=== PATIENT | male | born 1970 | race Caucasian/White ===

== ENCOUNTER 2022-06-03 07:36 | Emergency (ER) | payer OTHER, SELFPAY ==
--- NOTE | ~2022-06-03 | CT_ITS ---
EXAMINATION: CT CERVICAL, THORACIC, LUMBAR SPINE WITHOUT CONTRAST CLINICAL INFORMATION: Back and neck pain status post trauma/fall. COMPARISON: None TECHNIQUE: Multiple axial images of the cervical, thoracic and lumbar spine without administration of intravenous contrast. Coronal and sagittal reformatted images were obtained. FINDINGS: Cervical: There is straightening of the normal cervical lordosis with normal spinal alignment. Moderate to severe degenerative disc disease is seen at C6-7 with disc space narrowing, sclerosis and adjacent endplates and marginal osteophyte formation. Minimal bilateral neural foraminal narrowing as well. Mild disc space narrowing is seen at C5-6. The vertebral bodies and odontoid processes are intact. Mild multilevel bilateral facet arthropathy is seen. The spinous and transverse processes are intact. The cervical soft tissues are unremarkable. There is no lymphadenopathy. The thyroid gland is unremarkable. Thoracic: There is normal thoracic kyphosis and spinal alignment. Minimal multilevel degenerative changes are seen with marginal osteophyte formation. The vertebral bodies are intact. Minimal multilevel disc space narrowing is seen. The neural foramina are patent. Mild multilevel bilateral facet arthropathy is seen. A curvilinear lucency is seen along the posterior inferior margin of the spinous process of T6 (image 51, series 32). The remainder the spinous processes are intact. The paravertebral and subcutaneous soft tissues posteriorly are unremarkable. The visualized mediastinum and lungs are unremarkable. Lumbar: Transitional anatomy with rudimentary ribs at L1. Rudimentary disc at S1-2. There is normal lumbar lordosis and spinal alignment. The vertebral bodies are intact. The intervertebral disc spaces are unremarkable. The neural foramina are patent. Mild facet arthropathy is seen at L4-5. The spinous processes are intact. Mild bilateral sacroiliac degenerative joint changes. The visualized pelvis and sacrum are intact. The paravertebral and subcutaneous soft tissues posteriorly are unremarkable. No significant abnormality in the visualized posterior abdomen and pelvis. CT/CT thoracic spine wo IV con IMPRESSION: 1. Curvilinear lucency along the posterior inferior margin of the spinous process at the T6 level appears corticated and not acute. Acute nondisplaced fracture would be less likely. Correlate with physical exam. No other significant acute appearing abnormality. 2. Multilevel degenerative changes as detailed above.
--- NOTE | ~2022-06-03 | XR_ITS ---
EXAMINATION: XR PELVIS WITH HIP, LEFT XR KNEE, LEFT CLINICAL INFORMATION: Fall. Left leg pain. COMPARISON: None TECHNIQUE: Frontal view of the pelvis with 2 views of the left hip. 4 views of the left knee. FINDINGS: Pelvis/left hip: No fracture or dislocation. The hips are well aligned. Joint spaces are maintained. Tiny marginal osteophytes. Mild irregularity/degenerative change at the pubic symphysis with sclerosis. The sacroiliac joints are symmetric. Surgical clips likely associated with vasectomy. Left knee: No fracture or subluxation. Compartmental joint spaces are maintained. Small tricompartmental marginal osteophytes. No joint effusion. The soft tissues are unremarkable. XR/XR hip LT w PEL1V IMPRESSION: No fracture or malalignment involving the pelvis, left hip, or left knee. Mild degenerative changes.
--- NOTE | ~2022-06-03 | XR_ITS ---
EXAMINATION: XR PELVIS WITH HIP, LEFT XR KNEE, LEFT CLINICAL INFORMATION: Fall. Left leg pain. COMPARISON: None TECHNIQUE: Frontal view of the pelvis with 2 views of the left hip. 4 views of the left knee. FINDINGS: Pelvis/left hip: No fracture or dislocation. The hips are well aligned. Joint spaces are maintained. Tiny marginal osteophytes. Mild irregularity/degenerative change at the pubic symphysis with sclerosis. The sacroiliac joints are symmetric. Surgical clips likely associated with vasectomy. Left knee: No fracture or subluxation. Compartmental joint spaces are maintained. Small tricompartmental marginal osteophytes. No joint effusion. The soft tissues are unremarkable. XR/XR knee LT 4V IMPRESSION: No fracture or malalignment involving the pelvis, left hip, or left knee. Mild degenerative changes.
--- NOTE | ~2022-06-03 | CT_ITS ---
EXAMINATION: CT HEAD WITHOUT CONTRAST CLINICAL INFORMATION: Head pain status post trauma/fall. COMPARISON: None TECHNIQUE: Contiguous axial imaging was performed from the skull base to vertex without intravenous administration of contrast. Coronal and sagittal reformatted images were obtained. This CT examination was performed using dose optimization techniques as appropriate, variously including the following: *Automated exposure control *Adjustment of mA and/or kV according to patient size (this includes techniques or standardized protocols for targeted exams where dose is matched to indication/reason for exam; i.e. extremities or head) *Use of iterative reconstruction technique DLP: 826.30 mGy-cm FINDINGS: The cortical sulci are normal. The lateral ventricles are symmetrical. The third and fourth ventricles are in their normal midline position. The basilar and prepontine cisterns are unremarkable. There is no acute intra or extracerebral abnormality. There is no mass effect or midline shift. Sections through the bony calvarium are unremarkable. The paranasal sinuses are clear. The bony orbits and orbital contents are unremarkable. Mild anterior nasal septal deviation, apex of the right. Mild asymmetric mucosal thickening is seen in the right nasal cavity. CT/CT head/brain wo IV con IMPRESSION: No acute intracranial pathology.
[2022-06-03 07:49] VITALS: BP 121/65; PULSE 103; RESP 18; TEMP 36.1; O2SAT 96; BMI 38.2
--- NOTE | 2022-06-03 08:03 | ED.GENADULT ---
HPI - General Adult General Chief complaint: Fall Stated complaint: 5FT FALL FROM TRUCK,HEAD STRIKE,LLE PAIN Time Seen by Provider: 06/03/22 08:01 Source: patient and EMS Mode of arrival: EMS Limitations: no limitations History of Present Illness HPI narrative: Patient is a 51 year old assigned male at with no reported medical history presenting to the emergency department today after a fall. Patient states that he was moving oxygen tanks from truck to truck when someone moved the truck that he was stepping off of and he fell backwards approximately 5 feet, striking his head. Patient denies any loss of consciousness. Patient states that his left hip/leg, back, and head are all that hurt at this time. Patient denies any dizziness, lightheadedness, abdominal pain, nausea, vomiting, fever, chills, blurry vision, double vision, loss of vision, chest pain, difficulty breathing, shortness of breath, back pain, night sweats, pain with urination, increased urinary frequency, increased urinary urgency, blood in his urine or stool, syncope or a near syncopal episode, bowel incontinence, bladder incontinence, bowel retention, bladder retention, or any other complaints at this time. Onset (ago): hour(s) Location: head, back, left and lower extremity Radiation: non-radiation Severity: mild Severity scale (1-10): 3 Relieving factors: none Exacerbating factors: none Associated symptoms: denies other symptoms Treatments prior to arrival: none Related Data Previous Rx's Medication Instructions Recorded cyclobenzaprine 10 mg tablet 10 mg PO TID PRN muscle spasm 7 06/03/22 days #21 tabs Allergies Allergy/AdvReac Type Severity Reaction Status Date / Time No Known Allergies Allergy Verified 06/03/22 07:48 Review of Systems Constitutional: Constitutional: Reports no additional constitutional complaints, Denies chills, Denies fever(s) and Denies night sweats Eyes: Eyes: Reports no additional eye complaints, Denies blurry vision, Denies change in vision, Denies diplopia, Denies eye discharge, Denies loss of vision and Denies eye pain ENT: Denies dizziness Cardiovascular: Cardiovascular: Reports no additional cardiovascular complaints, Denies chest pain, Denies lightheadedness, Denies Loss of Consciousness and Denies dyspnea Respiratory: Respiratory: Reports no additional respiratory complaints and Denies dyspnea Gastrointestinal: Gastrointestinal: Reports no additional gastrointestinal complaints, Denies abdominal pain, Denies melena, Denies hematochezia, Denies change in bowel habits and Denies change in stool character Genitourinary: Genitourinary: Reports no additional male genitourinary complaints, Denies hematuria, Denies oliguria, Denies difficulty urinating, Denies dysuria, Denies urinary frequency, Denies urinary hesitancy, Denies urinary incontinence and Denies urinary urgency Musculoskeletal: Musculoskeletal: Reports no additional musculoskeletal complaints, Denies numbness and Denies tingling Comments: left leg pain, low back pain, headache Neurologic: Denies dizziness, Denies loss of vision, Denies numbness and Denies tingling Psychiatric: Psychiatric: Reports no additional psychiatric complaints Endocrine: Endocrine: Reports no additional endocrine complaints Hematologic/Lymphatic: Hematologic/Lymphatic: Reports no additional hematologic/lymphatic complaints Allergic/Immunologic: Allergic/Immunologic: Reports no additional allergic/immunologic complaints PMFSH Past Medical History Attestation statement: The following information was validated with the patient. Source: old records reviewed and nursing notes reviewed Social History Social History Advance Directives: No Advance Directives Information Provided: No Physical Exam ED Vital Signs: Vital Signs - 24 hr 06/03/22 07:49 06/03/22 09:44 Temperature 97.0 F Pulse Rate 103 H 104 H Respiratory Rate 18 18 Blood Pressure 121/65 130/75 Pulse Oximetry 96 96 Oxygen Delivery Method Room Air Room Air BMI result Body Mass Index 38.2 Const General: cooperative, no acute distress, alert and awake Nutritional Appearance: well nourished Orientation/consciousness: patient oriented x3 Limitations: no limitations HENMT Other: small abrasion to the posterior scalp - no active bleeding Ears: hearing grossly normal bilaterally and external ears normal General nose exam: Normal external nose present, no nasal discharge noted and no epistaxis Face and sinus: Yes abrasion (abrasion to the left eyebrow, no active bleeding) Mouth: Normal oral and palatal mucosa present, no drooling and no muffled voice Eyes General: appearance normal, both eyes and all related structures Periorbital: periorbital findings normal Eyelids: Yes eyelids normal Conjunctivae: conjunctivae normal Pupils: Equal, round and reactive pupils present EOM: EOMs intact bilaterally Neck Neck: Yes normal visual inspection, Yes full ROM and Yes no lymphadenopathy Chest Chest palpation & inspection: normal inspection of the chest Resp Effort & Inspection: normal respiratory effort and able to speak in complete sentences Auscultation: clear to auscultation bilaterally Cardio Rate: regular rate Rhythm: regular rhythm GI Inspection: Yes normal to inspection Palpation (GI): Soft to palpation, not firm, nontender, no guarding and not rigid General: Yes no CVA tenderness Back/Spine/Pelvis Back: no CVA tenderness Cervical Spine: normal cervical lordosis and cervical ROM normal Thoracic/Lumbar Spine: thoracic and lumbar spine normal to inspection and thoraco-lumbar ROM normal Pelvis: no pain with anterior-posterior compression Neuro General: patient oriented x3 and moves all extremities Cranial nerves: Yes Equal, round and reactive pupils present Cognition (Neuro): normal cognition Motor exam (neuro): 5/5 motor strength present throughout Sensory Exam: Normal double simultaneous stimulation for sensation Coordination: [id number] test normal Extrem General: Yes normal to inspection, Yes full ROM and Yes capillary refill normal Psych Appearance: grossly normal Mental Status: mental status grossly normal Affect: normal affect Attitude: cooperative Thought process: Normal thought process present Thought content: Normal thought content present Insight: Good insight present (Psych) Medications Administered Discontinued Medications Generic Name Dose Route Start Last Admin Trade Name Freq PRN Reason Stop Dose Admin Acetaminophen 650 mg 06/03/22 08:19 06/03/22 08:45 Acetaminophen 325 Mg Tablet PO 06/03/22 08:20 650 mg ONCE ONE Administration Diphtheria/Tetanus/Acell Pertussis 0.5 ml 06/03/22 08:15 06/03/22 08:55 Diphth,Pertus(Acell),Tet Adult 0.5 Ml Syringe IM 06/03/22 08:16 0.5 ml .ONCE ONE Administration Medical Decision Making Medical Decision Making [facility] Narrative: Patient is a 51 year old assigned male at with no reported medical history presenting to the emergency department today with left leg, head, and back pain after a fall. Patient's physical exam showed a small posterior scalp abrasion with no active bleeding and a small left lateral eyebrow laceration with no active bleeding. Patient's left hip, pelvis, and knee x-rays showed no acute process. Patient's head, neck, lumbar, and thoracic CTs showed no acute process. I explained my physical exam findings as well as all test results to the patient. I answered all questions asked by the patient. Patient was brought up to date on his tetanus status. I stressed the importance of the patient taking his medication as prescribed. I stressed the importance of the patient following up with his primary care provider and an orthopedic provider if needed. I stressed the importance of the patient returning to the emergency department immediately if his symptoms were to worsen or if he were to develop any dizziness, shortness of breath, difficulty breathing, chest pain, blurry vision, loss of vision, nausea, vomiting, abdominal pain, fever, chills, back pain, or any other complaints. Patient verbalized agreement and understanding with this treatment plan and discharge. Differential Diagnosis Differential Diagnoses: The differential diagnosis associated with the presentation includes fall, abrasion, contusion Independent Interpretation I performed an independent interpretation of an: Plain X-Ray and CT Scan Interpretation: My interpretation is in agreement with the radiologist's impression of these imaging studies. EXAMINATION: XR PELVIS WITH HIP, LEFT XR KNEE, LEFT CLINICAL INFORMATION: Fall. Left leg pain.? COMPARISON: None? TECHNIQUE: Frontal view of the pelvis with 2 views of the left hip. 4 views of the left knee.? FINDINGS: Pelvis/left hip: No fracture or dislocation. The hips are well aligned. Joint spaces are maintained. Tiny marginal osteophytes. Mild irregularity/degenerative change at the pubic symphysis with sclerosis. The sacroiliac joints are symmetric. Surgical clips likely associated with vasectomy. Left knee: No fracture or subluxation. Compartmental joint spaces are maintained. Small tricompartmental marginal osteophytes. No joint effusion. The soft tissues are unremarkable. XR/XR knee LT 4V IMPRESSION: No fracture or malalignment involving the pelvis, left hip, or left knee. Mild degenerative changes. Dictated By: Terry Cheng MD Signed By: Electronically signed by Terry Cheng MD 06/03/22 0933 EXAMINATION: CT CERVICAL, THORACIC, LUMBAR SPINE WITHOUT CONTRAST CLINICAL INFORMATION: Back and neck pain status post trauma/fall. COMPARISON: None? TECHNIQUE: Multiple axial images of the cervical, thoracic and lumbar spine without administration of intravenous contrast. Coronal and sagittal reformatted images were obtained. FINDINGS: Cervical: There is straightening of the normal cervical lordosis with normal spinal alignment. Moderate to severe degenerative disc disease is seen at C6-7 with disc space narrowing, sclerosis and adjacent endplates and marginal osteophyte formation. Minimal bilateral neural foraminal narrowing as well. Mild disc space narrowing is seen at C5-6. The vertebral bodies and odontoid processes are intact. Mild multilevel bilateral facet arthropathy is seen. The spinous and transverse processes are intact. The cervical soft tissues are unremarkable. There is no lymphadenopathy. The thyroid gland is unremarkable. Thoracic: There is normal thoracic kyphosis and spinal alignment. Minimal multilevel degenerative changes are seen with marginal osteophyte formation. The vertebral bodies are intact. Minimal multilevel disc space narrowing is seen. The neural foramina are patent. Mild multilevel bilateral facet arthropathy is seen. A curvilinear lucency is seen along the posterior inferior margin of the spinous process of T6 (image 51, series 32). The remainder the spinous processes are intact. The paravertebral and subcutaneous soft tissues posteriorly are unremarkable. The visualized mediastinum and lungs are unremarkable. Lumbar: Transitional anatomy with rudimentary ribs at L1. Rudimentary disc at S1-2. There is normal lumbar lordosis and spinal alignment. The vertebral bodies are intact. The intervertebral disc spaces are unremarkable. The neural foramina are patent. Mild facet arthropathy is seen at L4-5. The spinous processes are intact. Mild bilateral sacroiliac degenerative joint changes. The visualized pelvis and sacrum are intact. The paravertebral and subcutaneous soft tissues posteriorly are unremarkable. No significant abnormality in the visualized posterior abdomen and pelvis. CT/CT thoracic spine wo IV con IMPRESSION: 1. Curvilinear lucency along the posterior inferior margin of the spinous process at the T6 level appears corticated and not acute. Acute nondisplaced fracture would be less likely. Correlate with physical exam. No other significant acute appearing abnormality. 2. Multilevel degenerative changes as detailed above. Dictated By: Grzegorz Kwon MD Signed By: Electronically signed by Grzegorz Kwon MD 06/03/22 0928 EXAMINATION: CT HEAD WITHOUT CONTRAST CLINICAL INFORMATION: Head pain status post trauma/fall.? COMPARISON: None TECHNIQUE: Contiguous axial imaging was performed from the skull base to vertex without intravenous administration of contrast. Coronal and sagittal reformatted images were obtained. This CT examination was performed using dose optimization techniques as appropriate, variously including the following: *Automated exposure control *Adjustment of mA and/or kV according to patient size (this includes techniques or standardized protocols for targeted exams where dose is matched to indication/reason for exam; i.e. extremities or head) *Use of iterative reconstruction technique DLP: 826.30 mGy-cm FINDINGS: The cortical sulci are normal. The lateral ventricles are symmetrical. The third and fourth ventricles are in their normal midline position. The basilar and prepontine cisterns are unremarkable. There is no acute intra or extracerebral abnormality. There is no mass effect or midline shift. Sections through the bony calvarium are unremarkable. The paranasal sinuses are clear. The bony orbits and orbital contents are unremarkable. Mild anterior nasal septal deviation, apex of the right. Mild asymmetric mucosal thickening is seen in the right nasal cavity. CT/CT head/brain wo IV con IMPRESSION: No acute intracranial pathology. Dictated By: Grzegorz Kwon MD Signed By: Electronically signed by Grzegorz Kwon MD 06/03/22 0913 Critical Care Time Critical Care Time Critical Care Time: Yes Total Critical Care Time: 30 Attestation: I spent 30 minutes of Critical Care Time with this patient. This does not include time spent on separately reported billable procedures. Discharge Plan Discharge Clinical Impression: Fall Patient Disposition: Home, Self-Care Instructions: Fall Prevention (ED) Additional Instructions: Follow up with your primary care provider. Return to the emergency department immediately if your symptoms worsen or if you develop any dizziness, shortness of breath, difficulty breathing, chest pain, blurry vision, loss of vision, nausea, vomiting, abdominal pain, fever, chills, back pain, or any other complaints. Prescriptions: New cyclobenzaprine 10 mg tablet 10 mg PO TID PRN (Reason: muscle spasm) 7 Days Qty: 21 0RF Referrals: [facility] [Provider Group] (Call to establish and follow up with an orthopedic provider if your left upper leg pain continues.) [facility] [Provider Group] (Given that this was a work injury, you should follow up with [facility].) Earnest Duarte MD [Primary Care Provider] - Stand Alone Forms: Work/School Release Interventions: ED Discharge Assessment Last Done: 06/03/22 09:45 Discharge Date/Time: 06/03/22 09:51 Print Language: Citizen Of [place]
[2022-06-03] MEDS: Acetaminophen 325 MG TABLET 650 MG PO (08:45)
[2022-06-03] MEDS: Diphth,Pertus(ACell),Tet Adult 0.5 ML SYRINGE IM (08:55)
[2022-06-03 09:44] VITALS: BP 130/75; PULSE 104; RESP 18; O2SAT 96
== END 2022-06-03 09:51 | disposition home or self-care (01) ==
PROVIDERS: Emergency Provider Emergency Medicine; PCP Internal Medicine
DX: S09.90XA Unspecified injury of head, initial encounter (principal); S20.412A Abrasion of left back wall of thorax, initial encounter; R51.9 Headache, unspecified; M54.2 Cervicalgia; M54.6 Pain in thoracic spine; R10.2 Pelvic and perineal pain; M25.562 Pain in left knee; V83.6XXA Passenger of special industrial vehicle injured in nontraffic accident, initial encounter; Y93.9 Activity, unspecified; Y92.9 Unspecified place or not applicable; Y99.9 Unspecified external cause status; Z79.899 Other long term (current) drug therapy; Z23 Encounter for immunization
CPT/HCPCS: 70450; 72125; 72128; 72131; 73502; 73564; 90471; 90715; 99283; 99284

== ENCOUNTER → 2022-07-07 09:55 | Outpatient (BNVA) | payer OTHER, SELFPAY | PROVIDERS: PCP Internal Medicine; Visit Provider Physician Assistant Medical | DX: M25.552 Pain in left hip (principal); M25.562 Pain in left knee; Z91.81 History of falling | CPT/HCPCS: 99203 ==

== ENCOUNTER 2022-12-25 10:40 | Observation (INO) | payer OTHER, SELFPAY ==
--- NOTE | ~2022-12-25 | CT_ITS ---
EXAMINATION: CT ABDOMEN AND PELVIS WITH CONTRAST CLINICAL INFORMATION: Lower abdominal pain. COMPARISON: None available. TECHNIQUE: Multidetector volumetric images were obtained from the superior aspect of the liver through the pubic symphysis following administration 85 mL of Omnipaque 350 intravenous contrast. Sagittal and coronal reformatted images were obtained on the technologist's workstation. Oral contrast: No This CT examination was performed using dose optimization techniques as appropriate, variously including the following: *Automated exposure control *Adjustment of mA and/or kV according to patient size (this includes techniques or standardized protocols for targeted exams where dose is matched to indication/reason for exam; i.e. extremities or head) *Use of iterative reconstruction technique DLP: 918 mGy-cm FINDINGS: LUNG BASES: The visualized lung bases are unremarkable. LIVER, GALLBLADDER, AND BILIARY TREE: The liver is decreased in attenuation. No focal hepatic lesion or biliary ductal dilatation is present. The gallbladder is unremarkable with no evidence of radiopaque gallstones, gallbladder wall thickening, or obvious pericholecystic inflammatory changes. PANCREAS: No ductal dilatation. SPLEEN: Not enlarged. ADRENAL GLANDS: No adrenal mass. KIDNEYS AND URETERS: The kidneys are symmetric in size. No hydronephrosis or perinephric stranding. BLADDER: Unremarkable. GASTROINTESTINAL TRACT: Dilated and thick-walled appendix with surrounding inflammatory changes. There are reactive changes of the terminal ileum and cecal apex. No small bowel obstruction. Moderate fecal retention in the colon. ABDOMINAL WALL: Bilateral fat-containing inguinal hernias. LYMPH NODES: Few subcentimeter right lower quadrant mesenteric lymph nodes. VASCULAR: Normal caliber abdominal aorta. PELVIC VISCERA: The prostate glands and seminal vesicles are unremarkable. OSSEOUS STRUCTURES: No destructive bone lesions. CT/CT abdomen pelvis w IV con IMPRESSION: Acute appendicitis. Surgical consultation is recommended. Hepatic steatosis. Findings were reviewed and discussed with Dr. Romano at 2:30 PM on 12/25/2022.
[2022-12-25 10:44] VITALS: BP 132/68; PULSE 94; RESP 18; TEMP 36.9; O2SAT 97; BMI 36.9
[2022-12-25 11:04] LABS: MANUAL DIFF FLAG NO
[2022-12-25 11:06] LABS: Basophils Percent Auto 0.2 % (0-2); Eosinophils Absolute Auto 0.1 X10*3/uL (0.0-0.4); Eosinophils Percent Auto 0.5 % (0-4); Hematocrit 44.7 % (42.0-52.0); Hemoglobin 15.5 g/dl (14.0-18.0); Imm Gran Abs Auto 0.02 X10*3/uL (0.00-0.03); Imm Gran Pct Auto 0.2 % (0.0-0.4); Lymphocytes Absolute Auto 1.9 X10*3/uL (1.2-4.9); Lymphocytes Percent Auto 18.8 % (20-40); Mean Corpuscular HGB Conc 34.7 g/dl (31.0-36.0); Mean Corpuscular Hemoglobin 29.6 pg (27.0-33.0); Mean Corpuscular Volume 85.3 fL (80.0-98.0); Mean Platelet Volume 10.4 fL (9.4-12.4); Monocytes Absolute Auto 0.7 X10*3/uL (0.1-1.2); Monocytes Percent Auto 6.9 % (2-11); Neutrophils Absolute Auto 7.3 x10*3/uL (2.0-8.3); Neutrophils Percent Auto 73.4 % (45-73); Platelet Count 211 X10*3/uL (160-400); Red Blood Count 5.24 X10*6/uL (4.60-5.80); Red Cell Distribution Width 12.4 % (11.0-16.0)
[2022-12-25 11:23] LABS: Alanine Aminotransferase 34 U/L (0-40); Albumin Level 4.4 g/dL (3.5-5.0); Alkaline Phosphatase 59 U/L (39-117); Anion Gap 14 (12-20); Aspartate Amino Transferase 22 U/L (5-37); Bilirubin Direct 0.2 mg/dL (0.0-0.5); Bilirubin Total 0.6 mg/dL (0.0-1.0); Blood Urea Nitrogen 19 mg/dL (9-16); Calcium 9.4 mg/dL (8.4-10.2); Carbon Dioxide 22 mmol/L (22-29); Chloride 104 mmol/L (96-108); Creatinine Clr Calc Pharmacy 107.4; Estimated Glomerular Filt Rate > 60; Glucose Random 196 mg/dL (60-115); Lipase 15 U/L (8-78); Potassium 3.8 mmol/L (3.3-5.1); Sodium 136 mmol/L (135-145); Total Protein 7.7 g/dL (6.5-8.0)
[2022-12-25 11:39] LABS: COVID-19 Test Negative (Negative); IDNOW Serial# 08D9AD1C
[2022-12-25 11:47] LABS: IDNOW Serial# BCCEAD1C; Influenza A Negative (Negative); Influenza B2 Negative (Negative)
[2022-12-25 12:04] VITALS: BP 110/66; PULSE 84; RESP 17; TEMP 36.6; O2SAT 94
--- NOTE | 2022-12-25 12:14 | ED.ABDPAIN ---
HPI - Abdominal Pain General Chief Complaint: Abdominal Pain Stated Complaint: abd pain Time Seen by Provider: 12/25/22 12:02 Source: patient Mode of arrival: ambulatory Limitations: no limitations History of Present Illness HPI narrative: 52 yo male with PMH of HTN, DM no prior abdominal surgeries started with lower abdominal pain yesterday and nausea and poor PO intake. NO diarrhea and no vomiting, no change in urine but decreased output. Has had increased pain today. No prior bouts of diverticulitis, no prior abdominal surgeries. MD elicited complaint: abdominal pain Pertinent past history: none Onset (ago): day(s) (1) Pain Consistency: constant Location: RLQ and LLQ Severity: moderate Quality: cramping Radiation: none Migration to: RLQ Exacerbating factors: movement Relieving factors: nothing Associated symptoms: nausea Related Data Previous Rx's Medication Instructions Recorded cyclobenzaprine 10 mg tablet 10 mg PO TID PRN muscle spasm 7 06/03/22 days #21 tabs Allergies Allergy/AdvReac Type Severity Reaction Status Date / Time No Known Allergies Allergy Verified 06/03/22 07:48 Review of Systems Review of Systems Constitutional : No Weight loss, No Fever, No Chills ENT/Mouth : No sore throat, No Rhinorrhea Eyes: No Swelling, No Redness Cardiovascular : No Chest Pain, No SOB, NoEdema Respiratory : No Cough, No Sputum, No Wheezing Gastrointestinal : Positive Nausea, no Vomiting, no Diarrhea, positive abdominal Pain, No Hematochezia, No Melena Genitourinary : No Dysuria, No Urinary Frequency, No Hematuria, No Urgency Musculoskeletal : No joint pain, No Myalgias, No Joint Swelling Skin : No Skin Lesions, No rash Neuro : No Weakness, No Numbness, No Dizziness, No Headache Psych : No Anxiety/Panic, No Depression Heme/Lymph: No Bruising, No Lymphadenopathy Endocrine : No Polyuria, No Polydipsia All other systems reviewed and are negative. [facility] Past Medical History Attestation statement: The following information was validated with the patient. Medical History HTN (hypertension) Diabetes Social History Social History (Updated 12/25/22 @ 12:19 by Makayla Romano DO) Patient Tobacco Use Status: Never used Tobacco Smoked in Last 30 Days: No Substance Use Frequency: Daily Substance Use Frequency Other:: gummies cbd Advance Directives: No Advance Directives Information Provided: No Physical Exam ED Vital Signs: Vital Signs - 24 hr 12/25/22 10:44 12/25/22 12:04 Temperature 98.4 F 97.9 F Pulse Rate 94 84 Respiratory Rate 18 17 Blood Pressure 132/68 110/66 Pulse Oximetry 97 94 Oxygen Delivery Method Room Air Room Air BMI result Body Mass Index 36.9 Appearance: Alert. Oriented X3. No acute distress. Eyes: Pupils equal, round and reactive to light. ENT: Pharynx normal. Neck: Normal inspection. Neck supple. CVS: Normal heart rate and rhythm. Pulses normal. Respiratory: No respiratory distress. Breath sounds normal. Abdomen: Soft and moderate lower abdominal ttp no rebound Skin: Skin warm and dry. Normal skin color. Normal skin turgor. Extremities: No lower extremity edema. No calf ttp Neuro: Oriented X 3. No motor deficit. No sensory deficit. Medical Decision Making Medical Decision Making [facility] Narrative: 52 yo male with PMH of HTN, DM here with c/o lower abdominal pain but no vomiting, diarrhea no hx of diverticulitis. At this time labs, UA, CT scan for diverticulitis/renal colic/appendicitis ordered. IV morphine, IVF and IV toradol ordered. Differential Diagnosis Differential Diagnoses: The differential diagnosis associated with the presentation includes diverticulitis, appendicitis, UTI Admission/Observation Consideration of admission/observation: Escalation of care including admission/observation considered admit for appendicitis Consult Healthcare Provider Management of the patient was discussed with: Genetic Counsellor (Dr. Margarita santoro) Lab Data [facility] Lab Attestation statement: I reviewed the patient's lab results. 12/25/22 10:59 12/25/22 10:59 Labs: Lab Results 12/25/22 Range/Units 10:59 WBC 10.0 (4.8-10.8) X10*3/uL RBC 5.24 (4.60-5.80) X10*6/uL Hgb 15.5 (14.0-18.0) g/dl Hct 44.7 (42.0-52.0) % MCV 85.3 (80.0-98.0) fL MCH 29.6 (27.0-33.0) pg MCHC 34.7 (31.0-36.0) g/dl RDW 12.4 (11.0-16.0) % Plt Count 211 (160-400) X10*3/uL MPV 10.4 (9.4-12.4) fL Immature Gran % (Auto) 0.2 (0.0-0.4) % Neut % (Auto) 73.4 H (45-73) % Lymph % (Auto) 18.8 L (20-40) % Dyer % (Auto) 6.9 (2-11) % Eos % (Auto) 0.5 (0-4) % Baso % (Auto) 0.2 (0-2) % Lymph # (Auto) 1.9 (1.2-4.9) X10*3/uL Dyer # (Auto) 0.7 (0.1-1.2) X10*3/uL Eos # (Auto) 0.1 (0.0-0.4) X10*3/uL Baso # (Auto) 0.0 (0.0-0.2) X10*3/uL Abs Immat Gran (auto) 0.02 (0.00-0.03) X10*3/uL Absolute Neuts (auto) 7.3 (2.0-8.3) x10*3/uL Absolute Nucleated RBC 0.000 (0.0-0.012) X10*3/uL Nucleated RBC % (auto) 0.0 (0.0-0.2) /100WBC Sodium 136 (135-145) mmol/L Potassium 3.8 (3.3-5.1) mmol/L Chloride 104 (96-108) mmol/L Carbon Dioxide 22 (22-29) mmol/L Anion Gap 14 (12-20) BUN 19 H (9-16) mg/dL Creatinine 1.20 (0.5-1.4) mg/dL Estim Creat Clear Calc 107.4 Estimated GFR > 60 Random Glucose 196 H (60-115) mg/dL Calcium 9.4 (8.4-10.2) mg/dL Total Bilirubin 0.6 (0.0-1.0) mg/dL Direct Bilirubin 0.2 (0.0-0.5) mg/dL AST 22 (5-37) U/L ALT 34 (0-40) U/L Alkaline Phosphatase 59 (39-117) U/L Total Protein 7.7 (6.5-8.0) g/dL Albumin 4.4 (3.5-5.0) g/dL Lipase 15 (8-78) U/L COVID-19 (MATHEW) Negative (Negative) COVID-19 Clin Com See Note Influenza Type A (SHIELA) Negative (Negative) Influenza Type B (SHIELA) Negative (Negative) Influenza A & B Note See Note Independent Interpretation I performed an independent interpretation of an: CT Scan (uncomplicated appendicitis ) Radiology Impression Discussion of test interpretation with radiology: I discussed test interpretation with the radiologist and I have reviewed the radiologist's reading. External Record Review External record reviewed: Inpatient record Medications Administered Discontinued Medications Generic Name Dose Route Start Last Admin Trade Name Freq PRN Reason Stop Dose Admin Sodium Chloride 1,000 mls @ 999 mls/hr 12/25/22 12:15 12/25/22 12:39 Ns IVCONT 12/25/22 13:15 999 mls/hr .Q1H1M ZHEN Administration Iohexol 85 ml 12/25/22 13:08 12/25/22 13:08 Iohexol 350 Mg/Ml 75 Ml Infus..Btl IV 12/25/22 13:09 85 ml ONCE ONE Administration Ketorolac Tromethamine 15 mg 12/25/22 12:15 12/25/22 12:40 Ketorolac Tromethamine 15 Mg/Ml Vial IVPUSH 12/25/22 12:16 15 mg ONCE ONE Administration Morphine Sulfate 4 mg 12/25/22 12:15 12/25/22 12:26 Morphine Sulfate 4 Mg/Ml Cartridge IVPUSH 12/25/22 12:16 Not Given ONCE ONE Protocol Ondansetron HCl 4 mg 12/25/22 12:15 12/25/22 12:40 Ondansetron Hcl 4 Mg/2 Ml Vial IVPUSH 12/25/22 12:16 4 mg ONCE ONE Administration Critical Care Time Critical Care Time Critical Care Time: Yes Total Critical Care Time: 31 Attestation: surgical consult, pain improved after IV morphine, admission for acute appendicitis I attest to this time spent taking care of the patient Discharge Plan Discharge Clinical Impression: Acute appendicitis Qualifiers: Acute appendicitis type: with localized peritonitis Appendicitis gangrene presence: without gangrene Appendicitis perforation presence: without perforation Appendicitis abscess presence: without abscess Qualified Code(s): K35.30 - Acute appendicitis with localized peritonitis, without perforation or gangrene Patient Disposition: Admitted As Inpatient
[2022-12-25] MEDS: 0.9 % Sodium Chloride 1,000 ML 999 ML IVCONT (12:39)
[2022-12-25] MEDS: Ketorolac Tromethamine 15 MG/ML VIAL IVPUSH (12:40)
[2022-12-25] MEDS: ondansetron HCL 4 MG/2 ML VIAL IVPUSH (12:40)
[2022-12-25] MEDS: iohexoL 350 MG/ML 75 ML INFUS..BTL 85 ML IV (13:08)
[2022-12-25] MEDS: Piperacillin Sodium/Tazobactam 3.375 GM in 0.9 % Sodium Chloride 50 ML IV ×2 (14:50→20:41)
[2022-12-25] MEDS: 0.9 % Sodium Chloride 1,000 ML 100 ML IVCONT (14:51)
--- NOTE | 2022-12-25 15:04 | PM.HPGS ---
History of Present Illness History of Present Illness Date of Service: 12/25/22 Chief complaint: Acute appendicitis Narrative: Godwin Camarillo is a 52 year old male presenting with a 24 hour history of abdominal pain. The pain began in a generalized periumbilical region and gradually radiated to the right lower quadrant. The pain was associated with chills without fever. He denies nausea, vomiting, diarrhea or constipation. He does report anorexia but currently he is hungry. He also reports pain with movement/walking. He denies a previous history of similar complaints and denies a previous history of abdominal surgeries. His past medical history significant for hypertension and diabetes. Workup in the emergency department revealed a normal WBC however CT abdomen and pelvis confirmed inflamed appendix without evidence of perforation or abscess formation. Findings are consistent with uncomplicated acute appendicitis. He is admitted to the surgical service for further management of his acute appendicitis. Review of Systems Review of Systems: Yes all other systems are reviewed and are negative Constitutional: Constitutional: Reports chills, Denies fever(s), Denies headache(s), Reports poor appetite and Denies weakness ENT: Denies headache(s) Cardiovascular: Cardiovascular: Denies chest pain, Denies irregular heart rhythm, Denies palpitations and Denies dyspnea Respiratory: Respiratory: Denies cough, Denies excessive phlegm production and Denies dyspnea Gastrointestinal: Gastrointestinal: Reports abdominal pain, Denies bloating, Denies change in bowel habits, Denies constipation, Denies heartburn, Denies diarrhea, Denies nausea and Denies vomiting Genitourinary: Genitourinary: Denies difficulty urinating and Denies urinary frequency Musculoskeletal: Musculoskeletal: Denies back pain, Denies muscle weakness and Denies numbness Integumentary/Breasts: Skin/Breast: Denies changing lesions and Denies unusual bruising Neurologic: Denies headache(s), Denies numbness, Denies paresthesias and Denies weakness Psychiatric: Psychiatric: Denies anxiety and Denies depression Endocrine: Endocrine: Denies palpitations Hematologic/Lymphatic: Hematologic/Lymphatic: Denies lymphadenopathy PMFSH Past Medical History Medical History HTN (hypertension) Diabetes Social History Social History Patient Tobacco Use Status: Never used Tobacco Smoked in Last 30 Days: No Substance Use Frequency: Daily Substance Use Frequency Other:: gummies cbd Advance Directives: No Advance Directives Information Provided: No Meds Allergies Allergy/AdvReac Type Severity Reaction Status Date / Time No Known Allergies Allergy Verified 06/03/22 07:48 Active Medications: Current Medications Dextrose (Dextrose 50 % 25 Gm/50 Ml Syringe) 25 gm IVPUSH Q15M PRN; Protocol PRN Reason: per Hypoglycemia Standing Ord. Glucose (Glucose Gel 15 Gm Gel..Gram.) 15 gm PO Q15M PRN; Protocol PRN Reason: per Hypoglycemia Standing Ord. Hydromorphone HCl (Hydromorphone Hcl 0.5 Mg/0.5 Ml Syringe) 0.5 mg IVPUSH Q3H PRN; Protocol PRN Reason: Pain, Severe (Pain Scale 7-10) Sodium Chloride (Ns) 1,000 mls @ 100 mls/hr IVCONT .Q10H [facility] Last Admin: 12/25/22 14:51 Dose: 100 mls/hr Acetaminophen (Ofirmev) 1,000 mg in 100 mls @ 400 mls/hr IV Q6H [facility] Stop: 12/26/22 09:14 Lactated Ringer's (Lr) 1,000 mls @ 100 mls/hr IVCONT .Q10H [facility] Piperacillin Sod/Tazobactam (Sod 3.375 gm/ Sodium Chloride) 50 mls @ 100 mls/hr IV Q6H [facility] Insulin Human Lispro (Insulin Lispro 100 Unit/Ml 3 Ml Vial) 0 unit SUBCUT QIDACHS [facility]; Protocol Stop: 12/26/22 15:02 Ondansetron HCl (Ondansetron Hcl 4 Mg/2 Ml Vial) 4 mg IVPUSH QID PRN PRN Reason: Nausea Oxycodone HCl (Oxycodone Hcl Immed Release 5 Mg Tablet) 5 mg PO Q6H PRN PRN Reason: Pain, Moderate(Pain Scale 4-6) Sodium Chloride (0.9 % Sodium Chloride Flush 3 Ml Syringe) 3 ml IVFLUSH QSHIFT [facility] Zolpidem Tartrate (Zolpidem Tartrate 5 Mg Tablet) 5 mg PO BEDTIME PRN PRN Reason: Insomnia Physical Exam Vital Signs: Vital Signs: Last Vital Signs Temp 97.9 F 12/25/22 12:04 Pulse 84 12/25/22 12:04 Resp 17 12/25/22 12:04 BP 110/66 12/25/22 12:04 Pulse Ox 94 12/25/22 12:04 O2 Del Method Room Air 12/25/22 12:04 BMI result Body Mass Index 36.9 Const: General: cooperative and no acute distress Nutritional Appearance: well nourished Orientation/consciousness: patient oriented x3 Limitations: no limitations HEENT: Head: Yes normocephalic and Yes atraumatic Ears: hearing grossly normal bilaterally Resp: Effort & Inspection: normal respiratory effort, no audible wheezes, no cough and no respiratory distress Cardio: Jugular venous distension: no JVD GI: Inspection: Yes normal to inspection Palpation (GI): Soft to palpation, Tenderness to palpation present (GI) in the RUQ and at McBurney's point, no guarding and not rigid Percussion: Yes normal to percussion Auscultation: normal bowel sounds Skin: Other: Warm, dry, no rash Neuro: General: patient oriented x3 Extrem: General: Yes no clubbing, cyanosis or edema Results Results Labs: Short CBC 12/25/22 Range/Units 10:59 WBC 10.0 (4.8-10.8) X10*3/uL Hgb 15.5 (14.0-18.0) g/dl Hct 44.7 (42.0-52.0) % Plt Count 211 (160-400) X10*3/uL BMP 12/25/22 10:59 Sodium 136 Potassium 3.8 Chloride 104 Carbon Dioxide 22 BUN 19 H Creatinine 1.20 Calcium 9.4 Liver Function 12/25/22 Range/Units 10:59 Total Bilirubin 0.6 (0.0-1.0) mg/dL Direct Bilirubin 0.2 (0.0-0.5) mg/dL AST 22 (5-37) U/L ALT 34 (0-40) U/L Alkaline Phosphatase 59 (39-117) U/L Albumin 4.4 (3.5-5.0) g/dL Assessment and Plan (1) Acute appendicitis: Qualifiers: Acute appendicitis type: with localized peritonitis Appendicitis abscess presence: without abscess Appendicitis gangrene presence: without gangrene Appendicitis perforation presence: without perforation Qualified Code(s): K35.30 - Acute appendicitis with localized peritonitis, without perforation or gangrene Status: Acute Plan 52-year-old male patient with history of hypertension and diabetes presenting with 24 hour history of abdominal pain found on workup to have uncomplicated acute appendicitis. Currently reports his pain is 6/10. We discussed management of acute appendicitis including laparoscopic appendectomy verses IV antibiotics. After discussion of the risks and benefits of both options he wishes to proceed with IV antibiotics. I recommended observation for 24 hours and if his symptoms are improved tomorrow he will be switched to oral antibiotics and discharged to home. However his pain seems to not improved with antibiotics, laparoscopic appendectomy would be warranted. He expressed understanding and agrees with the plan. Time Spent With Patient Time: Total time managing care of this patient today ____ minutes. Quality Stroke Does the patient have a stroke diagnosis?: No VTE Prior VTE?: No VTE Risk Level:: Surgical - low VTE Device Contraindication: N/A - Device Ordered VTE Drug Contraindication: Treatment Not Indicated Procedures Date of Service Date of Service: 12/25/22
[2022-12-25 15:37] VITALS: BP 122/55; PULSE 82; RESP 12; O2SAT 96
--- NOTE | 2022-12-25 15:44 | PC.NURSE ---
report given. transport being contacted
[2022-12-25 16:00] VITALS: BP 142/67; PULSE 98; RESP 18; TEMP 36.7; O2SAT 94
[2022-12-25 16:38] LABS: INTERNATIONAL NORM RATIO 1.1 (0.9-1.1); Prothrombin Time 12.8 SEC (11.1-13.3)
[2022-12-25] MEDS: 0.9 % Sodium Chloride Flush 3 ML SYRINGE IVFLUSH (17:17)
[2022-12-25] MEDS: Lactated Ringers 1,000 ML 100 ML IVCONT (17:17)
[2022-12-25 17:26] LABS: Glucose, Whole Blood 128 mg/dL (60-115)
[2022-12-25] MEDS: Acetaminophen 1,000 MG/100 ML PIGGYBACK 400 MG IV ×2 (17:37→21:40)
--- NOTE | 2022-12-25 18:17 | PHA.MEDREC ---
Pharmacy Consult ? Medication Reconciliation Pharmacy has completed the medication reconciliation. SPOKE TO PT. HE CONFIRMED MED LIST USING [facility]ARM[facility] ON HIS PHONE. CONFIRMED HE TAKES OZEMPIC ON THURSDAY AND OMEPRAZOLE IS ONLY USED PRN
[2022-12-25 19:41] VITALS: BP 140/71; PULSE 86; RESP 18; TEMP 36.2; O2SAT 98
[2022-12-25 20:17] LABS: Glucose, Whole Blood 118 mg/dL (60-115)
[2022-12-26] VITALS (11 sets, daily range): BP systolic 127–162; BP diastolic 70–92; PULSE 77–114; RESP 14–20; TEMP 36–37.1; O2SAT 93–99
[2022-12-26] MEDS: Piperacillin Sodium/Tazobactam 3.375 GM in 0.9 % Sodium Chloride 50 ML IV ×4 (02:44→20:20)
[2022-12-26 03:12] LABS: Appearance Urine Clear; Color Urine Yellow; Glucose Urine UA 500 mg/dL (Negative); Leukocyte Esterase Urine Negative (Negative); Nitrite Urine Negative (Negative); PH 5.5 (5.0-9.0); Urine Blood Negative (Negative); Urine Ketones Negative (Negative); Urine Protein Negative (Neg-Trace)
[2022-12-26] MEDS: Acetaminophen 1,000 MG/100 ML PIGGYBACK 400 MG IV (03:15)
[2022-12-26] MEDS: Lactated Ringers 1,000 ML 100 ML IVCONT ×2 (03:15→16:17)
[2022-12-26 05:04] LABS: MANUAL DIFF FLAG NO
[2022-12-26 05:11] LABS: Basophils Percent Auto 0.4 % (0-2); Eosinophils Absolute Auto 0.1 X10*3/uL (0.0-0.4); Eosinophils Percent Auto 0.9 % (0-4); Hematocrit 40.3 % (42.0-52.0); Hemoglobin 13.6 g/dl (14.0-18.0); Imm Gran Abs Auto 0.02 X10*3/uL (0.00-0.03); Imm Gran Pct Auto 0.3 % (0.0-0.4); Lymphocytes Absolute Auto 1.7 X10*3/uL (1.2-4.9); Lymphocytes Percent Auto 22.1 % (20-40); Mean Corpuscular HGB Conc 33.7 g/dl (31.0-36.0); Mean Corpuscular Hemoglobin 29.6 pg (27.0-33.0); Mean Corpuscular Volume 87.8 fL (80.0-98.0); Mean Platelet Volume 11.1 fL (9.4-12.4); Monocytes Absolute Auto 0.7 X10*3/uL (0.1-1.2); Monocytes Percent Auto 9.2 % (2-11); Neutrophils Absolute Auto 5.3 x10*3/uL (2.0-8.3); Neutrophils Percent Auto 67.1 % (45-73); Platelet Count 190 X10*3/uL (160-400); Red Blood Count 4.59 X10*6/uL (4.60-5.80); Red Cell Distribution Width 12.5 % (11.0-16.0); White Blood Count 7.8 X10*3/uL (4.8-10.8)
[2022-12-26 05:21] LABS: Anion Gap 16 (12-20); Blood Urea Nitrogen 16 mg/dL (9-16); Carbon Dioxide 21 mmol/L (22-29); Chloride 107 mmol/L (96-108); Creatinine Clr Calc Pharmacy 130.2; Estimated Glomerular Filt Rate > 60; Glucose Random 95 mg/dL (60-115); Potassium 3.8 mmol/L (3.3-5.1); Sodium 140 mmol/L (135-145)
[2022-12-26 07:13] LABS: Glucose, Whole Blood 111 mg/dL (60-115)
--- NOTE | 2022-12-26 08:17 | MHC.SHP ---
Pre-Procedural Eval Section A Date of Service: 12/26/22 The patient is an INPATIENT: Yes Section B Chief Complaint: Acute appendicitis Allergies: Allergies Allergy/AdvReac Type Severity Reaction Status Date / Time No Known Allergies Allergy Verified 06/03/22 07:48 Plan Diagnosis/Plan: Unchanged I have reviewed the history and physical and performed a pertinent physical examination on my patient. No changes have occurred unless specified. Time Spent With Patient Time: Total time managing care of this patient today ____ minutes.
--- NOTE | 2022-12-26 10:27 | MHC.CM.PN ---
pt lives with is indepent has own ride home dc home no services
[2022-12-26 11:01] LABS: Glucose, Whole Blood 92 mg/dL (60-115)
--- NOTE | 2022-12-26 12:59 | P.CONAN_ITS ---
HPI - Anesthesia Eval Consult details Narrative: devaughn CRESPO Active Problems Active Problems: All Active Problems (Updated 12/25/22 @ 14:30 by Makayla Romano DO) Acute appendicitis (Acute) Past Medical History Medical History HTN (hypertension) Diabetes Family History Family history of problems with anesthesia: No Surgical History History of Problems with Anesthesia: No Social History Social History Household Members: Spouse and Children Housing: House Patient Tobacco Use Status: Never used Tobacco Second Hand Smoke Exposure: No Substance Use Type: Marijuana service: No Meds Allergies Allergy/AdvReac Type Severity Reaction Status Date / Time No Known Allergies Allergy Verified 06/03/22 07:48 Active Medications: Current Medications Dextrose (Dextrose 50 % 25 Gm/50 Ml Syringe) 25 gm IVPUSH Q15M PRN; Protocol PRN Reason: per Hypoglycemia Standing Ord. Glucose (Glucose Gel 15 Gm Gel..Gram.) 15 gm PO Q15M PRN; Protocol PRN Reason: per Hypoglycemia Standing Ord. Hydromorphone HCl (Hydromorphone Hcl 0.5 Mg/0.5 Ml Syringe) 0.5 mg IVPUSH Q3H PRN; Protocol PRN Reason: Pain, Severe (Pain Scale 7-10) Lactated Ringer's (Lr) 1,000 mls @ 100 mls/hr IVCONT .Q10H [facility] Last Infusion: 12/26/22 12:20 Dose: 100 mls/hr Piperacillin Sod/Tazobactam (Sod 3.375 gm/ Sodium Chloride) 50 mls @ 100 mls/hr IV Q6H [facility] Last Infusion: 12/26/22 09:48 Dose: Infused Insulin Human Lispro (Insulin Lispro 100 Unit/Ml 3 Ml Vial) 0 unit SUBCUT QIDACHS [facility]; Protocol Stop: 12/26/22 15:02 Last Admin: 12/26/22 11:49 Dose: Not Given Ondansetron HCl (Ondansetron Hcl 4 Mg/2 Ml Vial) 4 mg IVPUSH QID PRN PRN Reason: Nausea Oxycodone HCl (Oxycodone Hcl Immed Release 5 Mg Tablet) 5 mg PO Q6H PRN PRN Reason: Pain, Moderate(Pain Scale 4-6) Sodium Chloride (0.9 % Sodium Chloride Flush 3 Ml Syringe) 3 ml IVFLUSH HIFT [facility] Last Admin: 12/26/22 07:24 Dose: Not Given Zolpidem Tartrate (Zolpidem Tartrate 5 Mg Tablet) 5 mg PO BEDTIME PRN PRN Reason: Insomnia Home Medications Medication Instructions Recorded Confirmed Last Taken Type ascorbic acid (vitamin C) 500 mg 500 mg PO DAILY 12/25/22 12/25/22 12/24/22 History tablet (Vitamin C) cholecalciferol (vitamin D3) 50 50 mcg PO DAILY 12/25/22 12/25/22 12/24/22 History mcg (2,000 unit) capsule cyanocobalamin (vitamin B-12) 1,000 mcg PO DAILY 12/25/22 12/25/22 12/24/22 History 1,000 mcg tablet empagliflozin 25 mg tablet 25 mg PO QAM 12/25/22 12/25/22 12/24/22 History (Jardiance) escitalopram oxalate 10 mg tablet 10 mg PO DAILY 12/25/22 12/25/22 12/24/22 History fenofibrate 160 mg tablet 160 mg PO DAILY 12/25/22 12/25/22 12/24/22 History insulin glargine 100 unit/mL (3 70 unit subcut DAILY 12/25/22 12/25/22 Unknown History mL) subcutaneous pen (Lantus Solostar U-100 Insulin) levothyroxine 200 mcg tablet 200 mcg PO TUTH 12/25/22 12/25/22 12/23/22 History levothyroxine 200 mcg tablet 300 mcg PO SUMOWEFRSA 12/25/22 12/25/22 12/24/22 History lisinopril 20 1 tab PO DAILY 12/25/22 12/25/22 12/24/22 History mg-hydrochlorothiazide 12.5 mg tablet omeprazole 20 mg capsule,delayed 20 mg PO DAILY@0630 PRN Heartburn 12/25/22 12/25/22 12/24/22 History release rosuvastatin 40 mg tablet 40 mg PO DAILY 12/25/22 12/25/22 12/24/22 History semaglutide 0.25 mg or 0.5 mg (2 0.25 mg subcut MO 12/25/22 12/25/22 12/22/22 History mg/3 mL) subcutaneous pen injector (Ozempic) Exam Exam Date and Time: December 26, 2022 1259 Height,Weight and Vital Signs: Height 6 ft 3 in Weight 134.1 kg Last Vital Signs Temp 98.8 F 12/26/22 12:05 Pulse 93 12/26/22 12:05 Resp 16 12/26/22 12:05 BP 132/77 12/26/22 12:05 Pulse Ox 98 12/26/22 12:05 O2 Del Method Room Air 12/26/22 12:05 Pertinent Lab Results Pertinent Lab Results: Laboratory Tests 12/25/22 12/25/22 12/25/22 03:00 10:59 16:18 WBC 10.0 RBC 5.24 Hgb 15.5 Hct 44.7 MCV 85.3 MCH 29.6 MCHC 34.7 RDW 12.4 Plt Count 211 MPV 10.4 Immature Gran % (Auto) 0.2 Neut % (Auto) 73.4 H Lymph % (Auto) 18.8 L [place] % (Auto) 6.9 Eos % (Auto) 0.5 Baso % (Auto) 0.2 Lymph # (Auto) 1.9 [place] # (Auto) 0.7 Eos # (Auto) 0.1 Baso # (Auto) 0.0 Abs Immat Gran (auto) 0.02 Absolute Neuts (auto) 7.3 Absolute Nucleated RBC 0.000 Nucleated RBC % (auto) 0.0 PT 12.8 INR 1.1 Sodium 136 Potassium 3.8 Chloride 104 Carbon Dioxide 22 Anion Gap 14 BUN 19 H Creatinine 1.20 Estim Creat Clear Calc 107.4 Estimated GFR > 60 POC Glucose Random Glucose 196 H Calcium 9.4 Total Bilirubin 0.6 Direct Bilirubin 0.2 AST 22 ALT 34 Alkaline Phosphatase 59 Total Protein 7.7 Albumin 4.4 Lipase 15 Urine Color Yellow Urine Appearance Clear Urine pH 5.5 Ur Specific [place] 1.020 Urine Protein Negative Urine Glucose (UA) 500 H Urine Ketones Negative Urine Blood Negative Urine Nitrite Negative Ur Leukocyte Esterase Negative COVID-19 (MATHEW) Negative COVID-19 Clin Com See Note Influenza Type A (SHIELA) Negative Influenza Type B (SHIELA) Negative Influenza A & B Note See Note 12/25/22 12/25/22 12/26/22 17:21 20:02 04:38 WBC 7.8 RBC 4.59 L Hgb 13.6 L Hct 40.3 L MCV 87.8 MCH 29.6 MCHC 33.7 RDW 12.5 Plt Count 190 MPV 11.1 Immature Gran % (Auto) 0.3 Neut % (Auto) 67.1 Lymph % (Auto) 22.1 [place] % (Auto) 9.2 Eos % (Auto) 0.9 Baso % (Auto) 0.4 Lymph # (Auto) 1.7 [place] # (Auto) 0.7 Eos # (Auto) 0.1 Baso # (Auto) 0.0 Abs Immat Gran (auto) 0.02 Absolute Neuts (auto) 5.3 Absolute Nucleated RBC 0.000 Nucleated RBC % (auto) 0.0 PT INR Sodium 140 Potassium 3.8 Chloride 107 Carbon Dioxide 21 L Anion Gap 16 BUN 16 Creatinine 0.99 Estim Creat Clear Calc 130.2 Estimated GFR > 60 POC Glucose 128 H 118 H Random Glucose 95 Calcium 9.0 Total Bilirubin Direct Bilirubin AST ALT Alkaline Phosphatase Total Protein Albumin Lipase Urine Color Urine Appearance Urine pH Ur Specific [place] Urine Protein Urine Glucose (UA) Urine Ketones Urine Blood Urine Nitrite Ur Leukocyte Esterase COVID-19 (MATHEW) COVID-19 Clin Com Influenza Type A (SHIELA) Influenza Type B (SHIELA) Influenza A & B Note 12/26/22 12/26/22 07:06 10:58 WBC RBC Hgb Hct MCV MCH MCHC RDW Plt Count MPV Immature Gran % (Auto) Neut % (Auto) Lymph % (Auto) [place] % (Auto) Eos % (Auto) Baso % (Auto) Lymph # (Auto) [place] # (Auto) Eos # (Auto) Baso # (Auto) Abs Immat Gran (auto) Absolute Neuts (auto) Absolute Nucleated RBC Nucleated RBC % (auto) PT INR Sodium Potassium Chloride Carbon Dioxide Anion Gap BUN Creatinine Estim Creat Clear Calc Estimated GFR POC Glucose 111 92 Random Glucose Calcium Total Bilirubin Direct Bilirubin AST ALT Alkaline Phosphatase Total Protein Albumin Lipase Urine Color Urine Appearance Urine pH Ur Specific [place] Urine Protein Urine Glucose (UA) Urine Ketones Urine Blood Urine Nitrite Ur Leukocyte Esterase COVID-19 (MATHEW) COVID-19 Clin Com Influenza Type A (SHIELA) Influenza Type B (SHIELA) Influenza A & B Note Airway Mallampati Class: II TM Dist: >3cm Neck ROM: Full Heart: rrr Lungs: cta Assessment and Plan Assessment Anesthesia Assessment: Anesthesia Plan Discussed Final Anesthetic Review Family History of Problems with Anesthesia: No History of Problems with Anesthesia: No NPO: Yes ASA Class: III Final Preanesthetic Review: No Changes in Pt Med Stat, Meds/Allgs Chart Reviewed, Consent Obtained/Reviewed and Anes Risks/Benef Reviewed Anesthetic Plan Anesthetic Plan: GA Disposition: Standard PACU
--- NOTE | 2022-12-26 14:26 | P.OP_ITS ---
Operative Note Operative Note Date of Service: 12/26/22 Narrative: Preoperative diagnosis: Acute appendicitis Postoperative diagnosis: Same Procedure: Laparoscopic appendectomy Surgeon: Earnest Avila MD Door Installer:Aimee Espinal PA-C Anesthesia: General endotracheal Indications for procedure: 52-year-old male patient presenting with complaints of abdominal pain in the right lower quadrant found to have acute appendicitis by CT . Operative findings: Markedly inflamed appendix with phlegmon surrounding the appendix but without abscess or perforation. Phlegmon involve the cecum and terminal ileum. Specimen: Appendix Estimated blood loss: 10 mL Complications: non Procedure details: Patient was brought to the OR and placed in a supine position. After administering general anesthesia the patient's abdomen was prepped with ChloraPrep and draped in a sterile fashion. A surgical time-out was called and consent confirmed. Patient received preoperative antibiotics and Venodyne boots were in place. Local anesthesia consisting of 0.25% Sensorcaine with epinephrine was infiltrated in periumbilical region. A 5 mm incision was made below the umbilicus and carried down through subcutaneous tissue. A Veress needle was then inserted while elevating abdominal cavity with towel clips. After a positive drop test the abdomen was insufflated to a pressure of 15 mm of mercury. The Veress needle was removed and a 5 mm trocar inserted. The camera was then inserted in the abdomen explored. A 2nd 5 mm trocars placed in the lower midline. A 12 mm trocar was then placed in the left lower quadrant. The patient was then placed in a Trendelenburg position and rotated to the left. The appendix was identified in the right lower quadrant and brought up using blunt dissecting clamps. The mesentery of the appendix was then divided using the LigaSure. The appendiceal artery was cauterized and divided using the LigaSure. Dissection was continued down to the base of the cecum. An Endo-MARLENA stapler with a purple reload was then used to divide the appendix at the base with the cecum. The appendix was then placed in Endo-Catch bag and brought out through the left lower quadrant incision. The abdomen was then irrigated with saline solution and suctioned dry. Wounds were checked for hemostasis. CO2 was then evacuated from the abdominal cavity and all trocars removed. Fascia was closed in the left lower quadrant incision using a [id number] 0 Polysorb suture. Skin was closed at all incisions using a subcuticular 4-0 Polysorb suture. Steri-Strips 2 x 2 gauze and Tegaderm were then applied. The patient tolerated the procedure well. Sponge, instrument, needle counts reported as correct. The patient was transferred to PACU in stable condition.
[2022-12-26 15:15] LABS: Glucose, Whole Blood 112 mg/dL (60-115)
[2022-12-26] MEDS: 0.9 % Sodium Chloride Flush 3 ML SYRINGE IVFLUSH (16:10)
[2022-12-26 16:14] LABS: Glucose, Whole Blood 117 mg/dL (60-115)
--- NOTE | 2022-12-30 13:11 | P.DS_ITS ---
DS: Providers Provider Date of Service: 12/30/22 Date of admission: 12/25/22 14:58 Date of discharge: 12/26/22 Primary care physician: Earnest Duarte MD Admitting clinician: Earnest Avila Consults: 12/26/22 19:15 Consult to Hospitalist Routine Comment: Consulting Provider: Hospitalist Reason For Exam: s/p Lap Appy; diabetes med management Discharging clinician: Earnest Avila DS: Diagnosis Discharge Diagnosis (1) Acute appendicitis: Status: Acute DS: Summary Hospital Course Hospital Course: 52-year-old male patient presenting with a 24 hour history of abdominal pain beginning on 12/24/2022. The pain began in a periumbilical region and gradually radiated to the right lower quadrant. Pain is associated with fever without chills. She denies nausea, vomiting, diarrhea or constipation. Pain also increased with motion. He subsequently presented to the emergency department and was noted to have a normal WBC. CT abdomen and pelvis however revealed inflamed appendix without evidence of perforation or abscess. On examination the patient was noted to be tender in the right lower quadrant over McBurney's point suggestive of acute appendicitis. He was given the option of either antibiotics or surgery subsequently decided to proceed with a laparoscopic appendectomy. He subsequently underwent laparoscopic appendectomy 12/26/2022. Operative findings were suggestive of acute appendicitis with evidence of inflammation surrounding the appendix but without perforation. He underwent an uneventful laparoscopic appendectomy and was observed for several hours. He was started back on a regular diet and tolerated this well without nausea or vomiting. He was comfortable on oral pain medications and subsequently requested discharge to home. He was discharged home on postoperative day 0, 12/26/2022. Discharge instructions were to avoid lifting greater than 10 lb for the next 2 weeks. He may resume regular diet as tolerated. He should follow up in the office in approximately 1 week for wound check. He should also call for fever, chills, nausea, vomiting, or increased abdominal pain. Time spent discussing smoking cessation with patient: 3 to 10 minutes Status at Discharge Functional status at discharge: independent ambulation Overall status at discharge: patient is back to baseline Time Spent with Patient Time attestation: Total time managing care of this patient today ____ minutes. Discharge coordination time: Less than 30 minutes Quality: Safe Use of Opioids Does Pt have an Active Cancer Diagnosis on the Problem List?: No Quality: Stroke Does the patient have a stroke diagnosis?: No Physical Exam Vital Signs: Vital Signs: Last Vital Signs Temp 96.9 F 12/26/22 19:33 Pulse 114 H 12/26/22 19:33 Resp 20 12/26/22 19:33 BP 156/77 H 12/26/22 19:33 Pulse Ox 98 12/26/22 19:33 O2 Del Method Room Air 12/26/22 19:33 O2 Flow Rate 2 12/26/22 15:29 BMI result Body Mass Index 36.9 Const: General: cooperative and no acute distress Nutritional Appearance: well nourished Orientation/consciousness: patient oriented x3 Limitations: no limitations HEENT: Head: Yes normocephalic and Yes atraumatic Ears: hearing grossly normal bilaterally Resp: Effort & Inspection: normal respiratory effort, no audible wheezes, no cough and no respiratory distress Cardio: Jugular venous distension: no JVD GI: Inspection: Yes normal to inspection Palpation (GI): Soft to palpation, Tenderness to palpation present (GI) (Incisional tenderness), no guarding and not rigid Percussion: Yes normal to percussion Auscultation: normal bowel sounds Skin: Other: Warm, dry, no rash Neuro: General: patient oriented x3 Extrem: General: Yes no clubbing, cyanosis or edema DS: Data Data Completed and Pending Pending studies at discharge: Pending at discharge 12/26/22 14:11 Surgical [PTH] Routine Imaging CT scan - abdomen: Radiologist's impression: ITS Impressions Abdomen/Pelvis CT 12/25/22 13:29 IMPRESSION: Acute appendicitis. Surgical consultation is recommended. Hepatic steatosis. Findings were reviewed and discussed with Dr. Romano at 2:30 PM on 12/25/2022. Discharge Plan Discharge Anticipated Discharge Date/Time: 12/27/22 10:46 Patient Disposition: Home, Self-Care Discharge Diagnosis: acute appendicitis Referrals: Earnest Duarte MD [Primary Care Provider] - 1 Week Earnest Avila MD [Physician] - 1 Week Discharge Medications: New oxycodone 5 mg tablet 5 mg PO Q4H PRN (Reason: pain (scale score 7-10)) Qty: 26 0RF Rx Instructions: Partial Fill upon patient request. Continued lisinopril-hydrochlorothiazide 20-12.5 mg tablet 1 tab PO DAILY omeprazole 20 mg capsule,delayed release(DR/EC) 20 mg PO DAILY@0630 PRN (Reason: Heartburn) levothyroxine 200 mcg tablet 200 mcg PO TUTH levothyroxine 200 mcg tablet 300 mcg PO SUMOWEFRSA escitalopram oxalate 10 mg tablet 10 mg PO DAILY rosuvastatin 40 mg tablet 40 mg PO DAILY fenofibrate 160 mg tablet 160 mg PO DAILY insulin glargine [Lantus Solostar U-100 Insulin] 100 unit/mL (3 mL) insulin pen 70 unit subcut DAILY Jardiance 25 mg tablet 25 mg PO QAM Ozempic 0.25 mg or 0.5 mg (2 mg/3 mL) pen injector 0.25 mg subcut MO cyanocobalamin (vitamin B-12) 1,000 mcg Tablet 1,000 mcg PO DAILY ascorbic acid (vitamin C) [Vitamin C] 500 mg Tablet 500 mg PO DAILY cholecalciferol (vitamin D3) 50 mcg (2,000 unit) Capsule 50 mcg PO DAILY Discharge Orders: Discharge Order (Routine); Ordered 12/26/22 Ordered By: Earnest Avila Diet: Advance to usual diet Activity on Discharge: No heavy lifting Stand Alone Forms: Patient Portal Discharge page Activity Restrictions/Additional Instructions: If the incision area is tender, you may apply an ice pack for short intervals (No more than 20 minutes on, followed by at least 20 minutes off). Do not apply heat. Do not use creams, lotions, or topical antibiotics. These can cause infection or allergic reaction. Ok to shower. Remove clear dressings 3 days following your procedure. You have steri strips (small white cloth strips) covering your incision- these will fall off ~1 week. No heavy lifting (>10lbs) or strenuous activity! Follow up in office with Dr. Avila in 1 week. ([phone]) Call Your Doctor If: -Your temperature exceeds 101.5? F -You experience excessive pain or swelling -You have an unexpected reaction to medication -You have excessive bleeding -You experience continued vomiting/nausea -Your incision begins to separate -Your incision shows signs of infection such as increased redness, swelling , excessive pain, drainage (light blood or clear fluid is normal) or heat Care Plan Goals: Return to baseline health and resume normal activities following recovery period. Health Concerns: acute appendicitis diabetes mellitus Plan of Treatment: s/p laparoscopic appendectomy f/u in office in 1 week Assessment: Doing well post op. Discharge Date/Time: 12/26/22 21:00
== END 2022-12-26 21:00 | disposition home or self-care (01) ==
LOC: HO.ED 14:30 → HO.EDOVER 15:05 → HO.S3 15:31
PROVIDERS: Admitting Provider Surgery; Emergency Provider Emergency Medicine; PCP Internal Medicine; Visit Provider Surgery
PROC: 0DTJ4ZZ Resection of Appendix, Percutaneous Endoscopic Approach (ICD-10-PCS; CPT 44970; principal; 2022-12-26 12:30)
DX: K35.30 Acute appendicitis with localized peritonitis, without perforation or gangrene (principal); R10.11 Right upper quadrant pain; R10.32 Left lower quadrant pain; I10 Essential (primary) hypertension; E11.8 Type 2 diabetes mellitus with unspecified complications; Z11.52 Encounter for screening for COVID-19; Z79.899 Other long term (current) drug therapy
CPT/HCPCS: 44970; 36415; 74177; 80048; 80076; 81003; 82947; 83690; 85025; 85610; 87502; 87635; 88304; 96361; 96365; 96366; 96367; 96375; 96376; 99221; 99285; J0131; J1100; J1170; J1885; J2405; J2543; J3010; Q9967

== ENCOUNTER → 2022-12-25 14:58 | Outpatient (BNV) | payer OTHER, SELFPAY | PROVIDERS: Admitting Provider Surgery; Emergency Provider Emergency Medicine; PCP Internal Medicine; Visit Provider Surgery | DX: K35.30 Acute appendicitis with localized peritonitis, without perforation or gangrene (principal) | CPT/HCPCS: 44970; 99024; 99222 ==

== ENCOUNTER 2023-01-02 10:32 | Outpatient (AMB) | payer OTHER, SELFPAY ==
--- NOTE | 2023-01-02 10:47 | MHC.OFFVIS ---
Intake Vital Signs 01/02/23 10:56 Height 6 ft 3 in Weight 296 lb 2 oz BMI 37.0 BP 145/68 H Blood Pressure Location Lt brachial Position Sitting Pulse 79 Intake Visit Reasons: s/p laparoscopic appendectomy Intake Note: Patient is seen in office for post op assessment post laparoscopic appendectomy. Patient c/o: denies any other concerns at the time of visit Erp Engineer Required: No Accompanied by: Self / Same As Patient Allergies No Known Allergies Allergy (Verified 01/02/23 10:48) Medication List - Last Reconciled 01/02/23 by Earnest Avila MD ascorbic acid (vitamin C) (Vitamin C) 500 mg PO DAILY cholecalciferol (vitamin D3) 50 mcg PO DAILY cyanocobalamin (vitamin B-12) 1,000 mcg PO DAILY empagliflozin (Jardiance) 25 mg PO QAM escitalopram oxalate 10 mg PO DAILY fenofibrate 160 mg PO DAILY insulin glargine (Lantus Solostar U-100 Insulin) 70 units subcut DAILY levothyroxine 200 mcg PO TUTH levothyroxine 300 mcg PO SUMOWEFRSA lisinopril-hydrochlorothiazide 20-12.5 mg 1 tab PO DAILY omeprazole 20 mg PO DAILY@0630 PRN oxycodone 5 mg PO Q4H PRN rosuvastatin 40 mg PO DAILY semaglutide (Ozempic) 0.25 mg subcut MO HPI HPI Comments History of Present Illness Details 52-year-old male patient returning 1 week following laparoscopic appendectomy for acute appendicitis. He tolerated the procedure well and was discharged on postoperative day 0. He reports feeling well with minimal incisional discomfort. He denies nausea, vomiting, fever or chills. [facility] Medical History HTN (hypertension) Diabetes Surgical History (Updated 01/02/23 @ 11:00 by CARMENCITA Pike) History of laparoscopic appendectomy (12/22/22) Social History Household Members: Spouse and Children Housing: House Patient Tobacco Use Status: Never used Tobacco Second Hand Smoke Exposure: No Substance Use Type: Marijuana service: No Physical Exam Vital Signs: Last Vital Signs Pulse 79 01/02/23 10:56 BP 145/68 H 01/02/23 10:56 BMI result Body Mass Index 37.0 Const General: healthy appearing and no acute distress Nutritional Appearance: well nourished Orientation/consciousness: patient oriented x3 Limitations: no limitations Resp Effort & Inspection: normal respiratory effort GI Other: Trocar incisions are clean, dry, and intact without redness or discharge. No palpable hernia appreciated. Skin Other: Warm, dry, no rash Neuro General: patient oriented x3 Assessment & Plan Assessment & Plan (1) Acute appendicitis: Code(s): K35.80 - Unspecified acute appendicitis Qualifiers: Acute appendicitis type: with localized peritonitis Appendicitis abscess presence: without abscess Appendicitis gangrene presence: without gangrene Appendicitis perforation presence: without perforation Qualified Code(s): K35.30 - Acute appendicitis with localized peritonitis, without perforation or gangrene Plan 52-year-old male patient status post laparoscopic appendectomy returning 1 week postop. His wounds are clean and intact without redness or discharge. He should continue to avoid lifting greater than 10 lb for 1 week after which he may resume normal activity. Coding Level of Care Code Global (01455) Diagnoses Acute appendicitis K35.30 Acute appendicitis type: with localized peritonitis Appendicitis abscess presence: without abscess Appendicitis gangrene presence: without gangrene Appendicitis perforation presence: without perforation
[2023-01-02 10:56] VITALS: BP 145/68; PULSE 79; BMI 37.0
== END 2023-01-02 10:59 | disposition home or self-care (01) ==
PROVIDERS: PCP Internal Medicine; Visit Provider Surgery
DX: K35.30 Acute appendicitis with localized peritonitis, without perforation or gangrene (principal)
CPT/HCPCS: 99024

== ENCOUNTER → 2023-01-02 10:32 | Outpatient (BNVA) | payer OTHER, SELFPAY | PROVIDERS: PCP Internal Medicine; Visit Provider Surgery ==

== ENCOUNTER 2023-02-25 06:34 | Outpatient (REF) | payer OTHER, SELFPAY ==
[2023-02-25 07:42] LABS: Estimated Average Glucose 177 mg/dL; Hemoglobin A1c % 7.8 % (<6.0)
[2023-02-25 08:08] LABS: Cholesterol 218 mg/dL (<200); HDL Cholesterol 29 mg/dL (>40); LDL Cholesterol Calculated 119 mg/dL (<100); Triglycerides 354 mg/dL (<150)
== END 2023-02-25 06:35 | disposition home or self-care (01) ==
LOC: HO.LAB 06:34
PROVIDERS: PCP Internal Medicine; Visit Provider Internal Medicine
DX: E78.2 Mixed hyperlipidemia (principal); E11.65 Type 2 diabetes mellitus with hyperglycemia
CPT/HCPCS: 36415; 80061; 83036